=== PATIENT | female | born 1955 | race African-American/Black ===

== ENCOUNTER 2016-12-16 17:32 | Emergency (ER) | payer OTHER ==
[~2016-12-16] VITALS: Ht 160 cm; Wt 130.0 kg
[~2016-12-16 17:32] MED LIST: AMLO10 PO; CLON.1 PO; CLOP75 PO; ECOT81TA2 PO; LISI20 PO; METO50TA PO; OXYC1SOL5 PO; PRAV40 PO
[2016-12-16 17:35] VITALS: BP 210/118; PULSE 92; RESP 17; TEMP 97.8; O2SAT 98
[2016-12-16 17:44] VITALS: BP 176/112; PULSE 89
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
[2016-12-16] MEDS ORDERED: cloNIDine HCL 0.2 MG TAB PO ONE (19:15)
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
[2016-12-16] MEDS ORDERED: CYCL1TAB29 PO (19:41)
[2016-12-16] MEDS ORDERED: DICL50TA3 PO (19:41)
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
[2017-01-13] MEDS ORDERED: AMLO10TA2 PO ×2 (14:48→15:10)
[2017-01-13] MEDS ORDERED: ASPI81TA81 PO ×2 (14:48→15:10)
[2017-01-13] MEDS ORDERED: CLOP75TA PO ×2 (14:48→15:10)
[2017-01-13] MEDS ORDERED: LISI-515 PO ×2 (14:48→15:10)
[2017-01-13] MEDS ORDERED: METO50TA PO ×2 (14:48→15:10)
[2017-01-13] MEDS ORDERED: PRAV40TA2 PO ×2 (14:48→15:10)
[2017-01-13] MEDS ORDERED: CLON0.1T PO ×2 (14:48→15:10)
[2017-01-13] MEDS ORDERED: CLON.1 PO (15:17)
[2017-01-13] MEDS ORDERED: METH125I2 IM (15:19)
[2017-02-16] MEDS ORDERED: METO50TA PO (11:22)
[2017-03-22] MEDS ORDERED: TRAZ50TA12 PO (14:47)
[2017-03-22] MEDS ORDERED: ESCI10TA PO (14:47)
[2017-03-22] MEDS ORDERED: METF500T PO (15:08)
[2017-03-22] MEDS ORDERED: CLON0.1T PO (15:08)
== END 2016-12-16 19:55 | disposition home or self-care (01) ==
LOC: NEPB 17:32
DX: S16.1XXA Strain of muscle, fascia and tendon at neck level, initial encounter (principal); I10 Essential (primary) hypertension; V43.62XA Car passenger injured in collision with other type car in traffic accident, initial encounter; Y92.410 Unspecified street and highway as the place of occurrence of the external cause; Z86.73 Personal history of transient ischemic attack (TIA), and cerebral infarction without residual deficits
CPT/HCPCS: 72125; 99284; L0150

== ENCOUNTER → 2017-01-14 | Outpatient (CLI) | payer OTHER ==
[~2017-01-14] MED LIST changes: +AMLO10TA2 PO; +ASPI81TA81 PO; +CLON0.1T PO; +CLOP75TA PO; +CYCL1TAB29 PO; +DICL50TA3 PO; +ESCI10TA PO; +LISI-515 PO; +METF500T PO; +MIRA33504 PO; +PRAV40TA2 PO; +PROT40TA PO; +TRAZ50TA12 PO
[2017-01-14 09:50] LABS: AUTOMATED NEUTROPHIL # 9.5 TH/MM3 (1.8-7.7); BASOPHIL # 0.1 TH/MM3 (0-0.2); BASOPHIL % 0.5 % (0.0-2.0); HEMATOCRIT 42.4 % (35.0-46.0); HEMO FLAGS DIFF FINAL; LYMPH % 16.1 % (9.0-44.0); LYMPHOCYTE # 1.9 TH/MM3 (1.0-4.8); MEAN CELL VOLUME 90.3 FL (80.0-100.0); MEAN CORPUSCULAR HEMOGLOBIN 30.6 PG (27.0-34.0); MEAN CORPUSCULAR HGB CONC 33.9 % (32.0-36.0); MONO % 2.8 % (0.0-8.0); NEUT % 80.6 % (16.0-70.0); PLATELET COUNT 229 TH/MM3 (150-450); RED BLOOD COUNT 4.69 MIL/MM3 (4.00-5.30); RED CELL DISTRIBUTION WIDTH 14.5 % (11.6-17.2); WHITE BLOOD COUNT 11.8 TH/MM3 (4.0-11.0)
[2017-01-14 10:28] LABS: ALKALINE PHOSPHATASE 94 U/L (45-117); ALT (GPT) 16 U/L (10-53); ANION GAP 8 MEQ/L (5-15); AST (GOT) 11 U/L (15-37); BICARBONATE 25.2 MEQ/L (21.0-32.0); BLOOD UREA NITROGEN 11 MG/DL (7-18); CHLORIDE 105 MEQ/L (98-107); GLOMERULAR FILTRATION RATE 72 ML/MIN (>89); GLUCOSE,FASTING 153 MG/DL (74-99); HDL CHOLESTEROL 43.9 MG/DL (40.0-60.0); LDL CHOLESTEROL 161 MG/DL (0-99); SODIUM (NA) 138 MEQ/L (136-145); TOTAL BILIRUBIN ADULT 0.5 MG/DL (0.2-1.0)
== END ==
LOC: CLAB 09:33
PROVIDERS: ATTEND Family Medicine
DX: F41.9 Anxiety disorder, unspecified (principal); I10 Essential (primary) hypertension; R73.02 Impaired glucose tolerance (oral); M19.90 Unspecified osteoarthritis, unspecified site; Z87.891 Personal history of nicotine dependence
CPT/HCPCS: 36415; 80053; 80061; 84443; 85025

== ENCOUNTER → 2017-02-16 | Outpatient (CLI) | payer OTHER ==
[~2017-02-16] MED LIST changes: -AMLO10 PO; -CLON.1 PO; -CLOP75 PO; -ECOT81TA2 PO; -LISI20 PO; -OXYC1SOL5 PO; -PRAV40 PO
[2017-02-16 16:01] LABS: HEMOGLOBIN A1a 1.2 %; HEMOGLOBIN A1b 1.8 %; HEMOGLOBIN Ao 83.8 %; HEMOGLOBIN LA1C 2.1 %; HEMOGLOBIN P3 3.7 %
== END ==
LOC: CLAB 10:58
PROVIDERS: ATTEND Family Medicine
DX: R73.01 Impaired fasting glucose (principal)
CPT/HCPCS: 36415; 83036

== ENCOUNTER → 2017-02-23 | Outpatient (CLI) | payer OTHER ==
--- NOTE | 2017-02-24 17:28 | EKG ---
Date Performed: 02/23/2017 Time Performed: 14:15:50 PTAGE: 61 years EKG: Sinus rhythm NONSPECIFIC T-WAVE ABNORMALITY BORDERLINE ECG Compared to PREVIOUS TRACING of 03/02/2015, inferior T-wave changes are new. PREVIOUS TRACIN03/02 08.46 DOCTOR: Tio Keller Interpretating Date/Time 02/24/2017 17:26:45
== END ==
LOC: HCAV 14:04
PROVIDERS: ATTEND Family Medicine
DX: R00.2 Palpitations (principal)
CPT/HCPCS: 93005

== ENCOUNTER 2017-03-11 18:24 | Observation (INO) | payer OTHER ==
[~2017-03-11] VITALS: Ht 160 cm; Wt 92.0 kg
[2017-03-11] VITALS (7 sets, daily range): BP systolic 96–138; BP diastolic 58–101; PULSE 56–71; RESP 16–33; TEMP 98.3–98.9; O2SAT 97–100
[~2017-03-11 18:24] MED LIST changes: -ESCI10TA PO; -METF500T PO; -MIRA33504 PO; -PROT40TA PO; -TRAZ50TA12 PO
[2017-03-11] MEDS ORDERED: SODIUM CHLOR 0.9% 1000 ML INJ 1,000 ML IV SCH (19:23)
[2017-03-11] MEDS ORDERED: LIDOCAINE VISCOUS 2% SOLN 15 ML UDC PO ONE (19:30)
[2017-03-11] MEDS ORDERED: ASPIRIN 81 MG CHEW TAB PO ONE (19:30)
[2017-03-11] MEDS ORDERED: MORPHINE SULFATE 8 MG/ML INJ IV PUSH ONE (19:30)
[2017-03-11] MEDS ORDERED: SODIUM CHLORIDE 0.9% FLUSH 10 ML FLUSH IV FLUSH PRN (19:30)
[2017-03-11] MEDS ORDERED: ONDANSETRON HCL 4 MG/2 ML VIAL IVP ONE (19:30)
[2017-03-11] MEDS ORDERED: ALUMINUM/MAGNESIUM/SIMETH 30 ML CUP PO ONE (19:30)
[2017-03-11] MEDS: NITROGLYCERIN 0.4 MG SL 25 TABS/BTL SL SCH ×3 (19:40→20:12)
[2017-03-11 19:49] LABS: BASOPHIL % 0.2 % (0.0-2.0); EOSINOPHIL # 0.2 TH/MM3 (0-0.4); EOSINOPHIL % 1.8 % (0.0-4.0); HEMATOCRIT 41.4 % (35.0-46.0); HEMO FLAGS DIFF FINAL; LYMPH % 55.9 % (9.0-44.0); MEAN CELL VOLUME 91.7 FL (80.0-100.0); MEAN CORPUSCULAR HEMOGLOBIN 29.3 PG (27.0-34.0); MEAN CORPUSCULAR HGB CONC 31.9 % (32.0-36.0); MONO % 8.5 % (0.0-8.0); NEUT % 33.6 % (16.0-70.0); PLATELET COUNT 209 TH/MM3 (150-450); RED BLOOD COUNT 4.51 MIL/MM3 (4.00-5.30); RED CELL DISTRIBUTION WIDTH 14.5 % (11.6-17.2); WHITE BLOOD COUNT 8.9 TH/MM3 (4.0-11.0)
[2017-03-11 20:10] LABS: APTT (PATIENT) 29.4 SEC (24.3-30.1); PROTHROMBIN TIME - PATIENT 11.3 SEC (9.8-11.6)
--- NOTE | 2017-03-11 20:20 | PD ---
HPI Chief Complaint: Chest Pain Time Seen by Provider: 19:12 Travel History International Travel<30 days: No Contact w/Intl Traveler<30days: No Traveled to known affect area: No History of Present Illness HPI 61-year-old female describes with a left lower chest/upper abdomen pressure like sensation for about one hour or so. It started while she was cooking. She states it's 9/10. There is no radiation of pain. For the past 2 days she' s felt very weak however chest pain started tonight. She denies shortness of breath. No fever or cough reported. Evidently she has a history of coronary artery disease and underwent catheterization however her coronary arteries were too narrow for stenting and she is on aspirin and another blood thinner however she cannot recall name of it. When the patient sat upright to undergo evaluation of the lungs she had marked pain in the left upper abdomen forcing her to sit back down immediately. She notes that she has chronic constipation and typically has to use laxatives to go to the bathroom. She does report normal flatus. She's had no vomiting. PFSH Past Medical History Arthritis: No Blood Disorders: No Anxiety: Yes Cancer: No Cardiovascular Problems: Yes High Cholesterol: Yes Chest Pain: Yes Congestive Heart Failure: No Cerebrovascular Accident: Yes (TIA) Diminished Hearing: No Endocrine: No GERD: Yes Genitourinary: No Hypertension: Yes Immune Disorder: No Musculoskeletal: No Neurologic: No Psychiatric: No Reproductive: No Respiratory: No Migraines: No Myocardial Infarction: Yes Seizures: No Sleep Apnea: No ?: Not Menopausal: Yes Past Surgical History Abdominal Surgery: No Cardiac Surgery: Yes (CEA R) Ear Surgery: No Endocrine Surgery: No Eye Surgery: No Genitourinary Surgery: No Gynecologic Surgery: No Hysterectomy: Yes Oral Surgery: No Thoracic Surgery: No Other Surgery: No (LASER TO GROIN) Social History Alcohol Use: No Tobacco Use: No Substance Use: No Allergies-Medications (Allergen,Severity, Reaction): Coded Allergies: No Known Allergies (Verified , 02/14/17) Reported Meds & Prescriptions Reported Meds & Active Scripts Active Metoprolol Tartrate 50 Mg Tab 50 Mg PO BID Amlodipine (Amlodipine Besylate) 10 Mg Tab 10 Mg PO DAILY Aspir-81 (Aspirin) 81 Mg Tabdr 81 Mg PO DAILY Clonidine (Clonidine HCl) 0.1 Mg Tab 0.1 Mg PO BID Clopidogrel (Clopidogrel Bisulfate) 75 Mg Tab 75 Mg PO DAILY Lisinopril 20 Mg Tab 20 Mg PO BID Pravastatin 40 Mg Tab 80 Mg PO HS Review of Systems Except as stated in HPI: all other systems reviewed are Neg Physical Exam Narrative GENERAL: 61-year-old female pleasant well-nourished well-developed SKIN: Warm and dry. HEAD: Atraumatic. Normocephalic. EYES: Pupils equal and round. No scleral icterus. No injection or drainage. ENT: No nasal bleeding or discharge. Mucous membranes pink and moist. NECK: Trachea midline. No JVD. CARDIOVASCULAR: Regular rate and rhythm. RESPIRATORY: No accessory muscle use. Clear to auscultation. Breath sounds equal bilaterally. GASTROINTESTINAL: abdomen is soft but tender in the epigastrium and left upper quadrant. MUSCULOSKELETAL: Extremities without clubbing, cyanosis, or edema. No obvious deformities. NEUROLOGICAL: Awake and alert. No obvious cranial nerve deficits. Motor grossly within normal limits. Five out of 5 muscle strength in the arms and legs. Normal speech. PSYCHIATRIC: Appropriate mood and affect; insight and judgment normal. Data Data Last Documented VS Vital Signs Date Time Temp Pulse Resp B/P Pulse Ox O2 Delivery O2 Flow Rate FiO2 03/11/17 20:37 71 16 138/78 98 03/11/17 19:00 Nasal Cannula 2 03/11/17 18:36 98.3 Vital signs reviewed Orders Electrocardiogram (03/11/17 ) Complete Blood Count With Diff (03/11/17 19:23) Comprehensive Metabolic Panel (03/11/17 19:23) Lipase (03/11/17 19:23) Prothrombin Time / Inr (Pt) (03/11/17 19:23) Act Partial Throm Time (Ptt) (03/11/17 19:23) Urinalysis - C+S If Indicated (03/11/17 19:23) Ct Abd/Pel W Iv Contrast(Rout) (03/11/17 19:23) Iv Access Insert/Monitor (03/11/17 19:23) Ecg Monitoring (03/11/17 19:23) Oximetry (03/11/17 19:23) Ondansetron Inj (Zofran Inj) (03/11/17 19:30) Sodium Chlor 0.9% 1000 Ml Inj (Ns 1000 M (03/11/17 19:23) Sodium Chloride 0.9% Flush (Ns Flush) (03/11/17 19:30) Morphine Inj (Morphine Inj) (03/11/17 19:30) Al-Mag Hy-Si 40-40-4 Mg/Ml Liq (Mag-Al P (03/11/17 19:30) Lidocaine 2% Viscous (Xylocaine 2% Visco (03/11/17 19:30) Ckmb (Isoenzyme) Profile (03/11/17 19:23) Troponin I (03/11/17 19:23) Aspirin Chew (Aspirin Chew) (03/11/17 19:30) Nitroglycerin Sl (Nitrostat Sl) (03/11/17 19:30) Oral Contrast - Adult (03/11/17 19:43) Chest, Single Ap (03/11/17 ) Diatrizoate Liq ( Gastroview Liq) (03/11/17 21:09) Iohexol 350 Inj (Omnipaque 350 Inj) (03/11/17 22:50) Urine Culture (03/11/17 22:50) Admit Order (Ed Use Only) (03/11/17 23:16) Labs Laboratory Tests Test 03/11/17 03/11/17 19:25 22:50 White Blood Count 8.9 TH/MM3 Red Blood Count 4.51 MIL/MM3 Hemoglobin 13.2 GM/DL Hematocrit 41.4 % Mean Corpuscular Volume 91.7 FL Mean Corpuscular Hemoglobin 29.3 PG Mean Corpuscular Hemoglobin 31.9 % Concent Red Cell Distribution Width 14.5 % Platelet Count 209 TH/MM3 Mean Platelet Volume 10.0 FL Neutrophils (%) (Auto) 33.6 % Lymphocytes (%) (Auto) 55.9 % Monocytes (%) (Auto) 8.5 % Eosinophils (%) (Auto) 1.8 % Basophils (%) (Auto) 0.2 % Neutrophils # (Auto) 3.0 TH/MM3 Lymphocytes # (Auto) 5.0 TH/MM3 Monocytes # (Auto) 0.8 TH/MM3 Eosinophils # (Auto) 0.2 TH/MM3 Basophils # (Auto) 0.0 TH/MM3 CBC Comment DIFF FINAL Differential Comment Prothrombin Time 11.3 SEC Prothromb Time International 1.0 RATIO Ratio Activated Partial 29.4 SEC Thromboplast Time Sodium Level 138 MEQ/L Potassium Level 4.8 MEQ/L Chloride Level 100 MEQ/L Carbon Dioxide Level 30.6 MEQ/L Anion Gap 7 MEQ/L Blood Urea Nitrogen 13 MG/DL Creatinine 0.91 MG/DL Estimat Glomerular Filtration 77 ML/MIN Rate Random Glucose 84 MG/DL Calcium Level 9.2 MG/DL Total Bilirubin 0.5 MG/DL Aspartate Amino Transf 15 U/L (AST/SGOT) Alanine Aminotransferase 14 U/L (ALT/SGPT) Alkaline Phosphatase 94 U/L Total Creatine Kinase 88 U/L Troponin I LESS THAN 0.02 NG/ML Total Protein 8.1 GM/DL Albumin 3.3 GM/DL Lipase 101 U/L Urine Color YELLOW Urine Turbidity HAZY Urine pH 6.0 Urine Specific [place] 1.011 Urine Protein NEG mg/dL Urine Glucose (UA) NEG mg/dL Urine Ketones NEG mg/dL Urine Occult Blood NEG Urine Nitrite NEG Urine Bilirubin NEG Urine Urobilinogen LESS THAN 2.0 MG/DL Urine Leukocyte Esterase SMALL Urine RBC 1 /hpf Urine WBC 4 /hpf Urine Squamous Epithelial 3 /hpf Cells Urine Bacteria MOD /hpf Urine Mucus FEW /lpf Microscopic Urinalysis Comment CULTURE INDICATED MDM Medical Decision Making Medical Screen Exam Complete: Yes Emergency Medical Condition: Yes Medical Record Reviewed: Yes Differential Diagnosis NSTEMI, unstable angina, coronary vasospasm, PE, PTX, aortic dissection, pericarditis, myocarditis, endocarditis, PNA, esophageal disease, aneurysm, musculoskeletal etiologies, anxiety, cocaine/sympathomimetic abuse Narrative Course EKG reveals a sinus rhythm with a rate of 54 normal axis and intervals, TWI in III and flattening in aVF CBC & BMP Diagram 03/11/17 19:25 Tn < 0.02 LFts normal Lipase normal UA: unlikely a UTI Last 24 hours Impressions Abdomen/Pelvis CT 03/11/17 1923 Signed Impressions: Service Date/Time: Saturday, March 11, 2017 22:46 - CONCLUSION: 1. No acute findings in abdomen and pelvic CT. Mild fatty liver. Mild constipation. Dewey Miranda MD Chest X-Ray 03/11/17 0000 Signed Impressions: Service Date/Time: Saturday, March 11, 2017 20:49 - CONCLUSION: No evidence of acute cardiopulmonary disease. Mild, chronic compensated cardiomegaly. Matt Maloney MD Pt's pain could be coronary in nature. She has a hx of CAD per prior cath records. Constipation is a concern as well. SENIOR RD ENGINEER protocol considered next most reasonable step for patient. Diagnosis Primary Impression: Chest pain Qualified Code: R07.9 - Chest pain, unspecified type Additional Impression: Constipation Qualified Code: K59.00 - Constipation, unspecified constipation type Admitting Information Admitting Physician Requests: Observation Jamie Arauz MD March 11, 2017 20:20
[2017-03-11 20:22] LABS: ANION GAP 7 MEQ/L (5-15); AST (GOT) 15 U/L (15-37); BICARBONATE 30.6 MEQ/L (21.0-32.0); BLOOD UREA NITROGEN 13 MG/DL (7-18); CHLORIDE 100 MEQ/L (98-107); GLOMERULAR FILTRATION RATE 77 ML/MIN (>89); POTASSIUM 4.8 MEQ/L (3.5-5.1); SODIUM (NA) 138 MEQ/L (136-145)
[2017-03-11 20:49] LABS: ALKALINE PHOSPHATASE 94 U/L (45-117); ALT (GPT) 14 U/L (10-53); TOTAL BILIRUBIN ADULT 0.5 MG/DL (0.2-1.0)
[2017-03-11] MEDS ORDERED: DIATRIZOATE MEGLUM/DIATRIZOATE SOD 9 ML CUP ONE (21:09)
[2017-03-11 21:16] LABS: CREATINE KINASE 88 U/L (26-192)
--- NOTE | 2017-03-11 21:23 | RADRPT ---
EXAM DATE/TIME: 03/11/2017 20:49 [facility] COMPARISON: Report only CHEST SINGLE AP, January 26, 2011, 15:44. INDICATIONS : Chest pressure for 4 hours MEDICAL HISTORY : None. SURGICAL HISTORY : None. ENCOUNTER: Initial ACUITY: 1 day PAIN SCORE: 0/10 LOCATION: Bilateral chest FINDINGS: No infiltrate, effusion or pneumothorax. Mild cardiomegaly present and was reported previously. CONCLUSION: No evidence of acute cardiopulmonary disease. Mild, chronic compensated cardiomegaly. Matt Maloney MD on March 11, 2017 at 21:21 Board Certified Radiologist. This report was verified electronically.
[2017-03-11] MEDS ORDERED: IOHEXOL 350 MG/ML 10 ML VIAL (for RAD DIAG) IV ONE (22:50)
--- NOTE | 2017-03-11 23:09 | RADRPT ---
EXAM DATE/TIME: 03/11/2017 22:46 [facility] COMPARISON: No previous studies available for comparison. INDICATIONS : Abdominal pain. IV CONTRAST: 100 cc Omnipaque 350 (iohexol) IV ORAL CONTRAST: Prescribed oral contrast ingested. RADIATION DOSE: 11.49 CTDIvol (mGy) MEDICAL HISTORY : Hypertension. Cardiovascular disease SURGICAL HISTORY : Hysterectomy. Endarterectomy ENCOUNTER: Initial ACUITY: 1 day PAIN SCALE: 6/10 LOCATION: abdomen TECHNIQUE: Volumetric scanning of the abdomen and pelvis was performed. Using automated exposure control and ad justment of the mA and/or kV according to patient size, radiation dose was kept as low as reasonably achievable to obtain optimal diagnostic quality images. FINDINGS: Lung bases clear except minimal linear scarring or atelectasis. There is mild fatty liver. Spleen, ad renals, kidneys and pancreas unremarkable. No calcified gallstones. There is no free fluid or free air. No bowel obstruction. Mild constipation. Moderate degenerative ch anges seen spine. CONCLUSION: 1. No acute findings in abdomen and pelvic CT. Mild fatty liver. Mild constipation. Dewey Miranda MD on March 11, 2017 at 23:01 Board Certified Radiologist. This report was verified electronically.
[2017-03-11 23:11] LABS: BACTERIA, URINE MOD /hpf; BLOOD, URINE NEG (NEG); COMMENT (UR) CULTURE INDICATED; CULTURE IF INDICATED CULTURE INDICATED; GLUCOSE,URINE NEG (NEG); KETONE, URINE NEG (NEG); MUCUS URINE FEW /lpf (OCC); NITRITE,URINE NEG (NEG); SQUAMOUS EPITHELIAL CELL URINE 3 /hpf (0-5); URINE COLOR YELLOW (YELLW/STRAW)
[2017-03-12] MEDS ORDERED: ALPRAZolam 0.25 MG TAB PO PRN (00:30)
[2017-03-12] MEDS ORDERED: ACETAMINOPHEN/HYDROcodone 325 MG/7.5 MG TAB PO PRN (00:30)
[2017-03-12] MEDS ORDERED: NITROGLYCERIN 0.4 MG SL 25 TABS/BTL SL PRN (00:30)
[2017-03-12] MEDS ORDERED: MORPHINE SULFATE 4 MG/ML INJ IV PRN (00:30)
[2017-03-12] MEDS ORDERED: ONDANSETRON HCL 4 MG/2 ML VIAL IV PRN (00:30)
[2017-03-12] MEDS ORDERED: TEMAZEPAM 15 MG CAP PO PRN (00:30)
[2017-03-12 01:17] VITALS: O2SAT 100
[2017-03-12 01:59] LABS: CREATINE KINASE 149 U/L (26-192)
[2017-03-12 02:00] VITALS: PULSE 50
[2017-03-12 02:12] LABS: CKMB 0.9 NG/ML (0.5-3.6)
[2017-03-12 03:25] VITALS: RESP 21
[2017-03-12 05:28] VITALS: PULSE 53
[2017-03-12] MEDS: NITROGLYCERIN 2% OINT 1 GM PACKET TOP SCH ×2 (06:00→12:00)
[2017-03-12 08:15] LABS: CREATINE KINASE 66 U/L (26-192)
--- NOTE | 2017-03-12 08:36 | HHI.HP ---
HPI Primary Care Physician Lynne Grace MD Chief Complaint Chest pain History of Present Illness 61-year-old female with known coronary artery disease, hypertension, hyperlipidemia presents to the emergency room for further evaluation of chest and abdominal pressure. Onset yesterday 4:30 p.m. while cooking. Location epigastric, upper abdominal, and left anterior chest. Characterized as severe, heavy pressure stating "I felt my stomach would burst." No associated symptoms. No known precipitating factors. Relieving factors morphine and nitroglycerin provided in the ER, subsided within 5 minutes however quickly returned endorses constant waxing and waning abdominal and chest discomfort. Pain has never gone completely away. Never had pain such as this in the past. No particular movement, position may pain better or worse. Deep breathing did not make pain worse. Endorses chronic constipation use of Epson salts laxatives at least twice weekly. She cannot remember last bowel movement date, states "it's been a while." Review of Systems General: Endorses fatigue over the last few months, PCP recently completed blood work and she has an appointment next week to review results. No weakness , fever, chills, recent travel, recent illness, or change in appetite HEENT: No MORALES, no nasal congestion or drainage, no dysphasia. No acute vision changes, reports occasionally seen "black, floating dots. CV: As stated above. History of coronary artery disease, no known myocardial infarctions or coronary interventions. Occasional fluttering of chest with no known precipitating factors. No dizziness. RESP: No SOB, cough, wheeze, upper respiratory infection, or asthma. Quit smoking 2014. GI: As stated above. History of chronic constipation, use of laxatives twice weekly. Last bowel movement unknown. No nausea, vomiting, diarrhea, distention , melena, or blood in the stool. No change in appetite. Endorses weight gain which she contributes to her eating habits. : No dysuria, urgency, frequency, or hematuria EXT: Bilateral dependent lower leg edema relieved with elevation of legs. Complains of chronic bilateral feet pain described as "my feet are on fire." MS: No discomfort or change in ROM, no residual deficits from stroke in 2015. Ambulates without cane or walker. NEURO: No change in memory, dizziness, difficulty with balance, LOC, motor/ sensory deficits PSYCH: Endorses anxiety, states her PCP is assisting her to be evaluated at [facility]. No depression, situational stress, or suicidal ideation. SKIN: No rashes, no concerning lesions Past Family Social History Allergies: Coded Allergies: No Known Allergies (Verified , 02/14/17) Past Medical History Coronary artery disease, hypertension, CVA, TIA, anxiety, hyperlipidemia, carotid arterial stenosis Past Surgical History Right CEA Reported Medications Active Metoprolol Tartrate 50 Mg Tab 50 Mg PO BID Amlodipine (Amlodipine Besylate) 10 Mg Tab 10 Mg PO DAILY Aspir-81 (Aspirin) 81 Mg Tabdr 81 Mg PO DAILY Clonidine (Clonidine HCl) 0.1 Mg Tab 0.1 Mg PO BID Clopidogrel (Clopidogrel Bisulfate) 75 Mg Tab 75 Mg PO DAILY Lisinopril 20 Mg Tab 20 Mg PO BID Pravastatin 40 Mg Tab 80 Mg PO HS Active Ordered Medications Current Medications Medications (Trade) Dose Ordered Sig/Sergio Route Start Time Stop Time Status Last Admin ([place] 7.5-325 Mg) 1 tab Q4H PRN PO 03/12/17 00:30 (Morphine Inj) 2 mg Q4H PRN IV 03/12/17 00:30 03/12/17 03:20 (Zofran Inj) 4 mg Q6H PRN IV 03/12/17 00:30 (Nitroglycerin 2% Oint) 1 inch Q6HR TOP 03/12/17 06:00 (Nitrostat Sl) 0.4 mg Q5M PRN SL 03/12/17 00:30 (Aspirin) 325 mg DAILY PO 03/12/17 09:00 (Restoril) 15 mg HS PRN PO 03/12/17 00:30 (Xanax) 0.25 mg Q8H PRN PO 03/12/17 00:30 Family History Noncontributory for early onset cardiovascular disease. Social History Known hypertension and hyperlipidemia. Has been told she has a "borderline diabetic." [employer] records indicate lab work completed 02/17/17 a hemoglobin A1c of 6.9%. Quit smoking and alcohol use on December 22, 2014. Prior to quitting smoking she smoked 1 pack daily since her early teens. Denies any illegal drug use. Endorses is sedentary lifestyle due to chronic right knee pain and bilateral feet pain. , currently unemployed. Past cardiac testing 03/04/15 Imani scanfixed defect involving inferior and lateral wall suggesting infarcts and RCA and left circumflex distribution, global hypokinesis, ejection fraction 30%, with no reversible defects 02/17/08 left heart catheterization(Performed by Dr. Mcqueen) Conclusion 1. Left main has 2030% ostial lesion. 2. LAD has 20-30% disease in the proximal portion. The rest of the left anterior descending artery has mild diffuse 1020 % stenosis. 3. The circumflex artery gives rise to 2 marginals. At the bifurcation of the second marginal, there is 70% stenosis. Distal to that, the circumflex appears to be 2 mm size vessel. 4. RCA is a dominant vessel with diffusely disease of multiple areas of 5060% blockages. The PDA and PLR have mild diffuse disease. 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 Physical Exam Vital Signs Vital Signs Date Time Temp Pulse Resp B/P Pulse Ox O2 Delivery O2 Flow Rate FiO2 03/12/17 05:28 53 03/12/17 03:25 21 03/12/17 02:00 50 03/12/17 01:17 100 Nasal Cannula 2.00 03/11/17 20:37 71 16 138/78 98 03/11/17 20:20 60 16 96/58 97 03/11/17 20:05 58 18 106/81 97 03/11/17 19:55 60 18 124/81 97 03/11/17 19:00 60 18 98 Nasal Cannula 2 03/11/17 18:36 98.3 56 20 132/101 98 03/11/17 18:26 98.9 60 33 137/82 100 Physical Exam GENERAL: Alert WN, WD, NAD, obese, pleasant, female HEAD: NC, AT EYES: Sclera clear, conjunctiva without injection, pupils equal and round ENT: Mucous membranes pink and moist NECK: Supple, no masses, trachea midline CV: RRR, without murmur, rub, gallop, no JVD, S1-S2 no S3-S4. No carotid or femoral bruits. RESP: Clear lungs throughout bilateral, no crackles, wheeze, rhonchi, symmetrical chest rise, nonlabored, able to speak in full sentences ABD: Soft, ND, no masses, positive bowel tones, negative Bowen's sign, generalized tenderness in epigastrium, left upper quadrat with palpation. BACK: No CVAT, no scoliosis EXT: Pulses +24, +1 dependent ankle edema MS: Anterior chest tender on palpation. Normal tone 4 extremities, no obvious deformities, full range of motion NEURO: CN II through CN XII grossly intact, motor strength 5/5, gait WNL PSYCH: A+O 3, pleasant affect, appropriate speech, appropriate mood and affect , insight and judgment SKIN: Normal turgor, normal texture, no lesions, no rashes, brisk cap refill, even hair distribution Laboratory Laboratory Tests Test 03/11/17 03/11/17 03/12/17 03/12/17 19:25 22:50 01:00 07:40 White Blood Count 8.9 Red Blood Count 4.51 Hemoglobin 13.2 Hematocrit 41.4 Mean Corpuscular Volume 91.7 Mean Corpuscular Hemoglobin 29.3 Mean Corpuscular Hemoglobin 31.9 Concent Red Cell Distribution Width 14.5 Platelet Count 209 Mean Platelet Volume 10.0 Neutrophils (%) (Auto) 33.6 Lymphocytes (%) (Auto) 55.9 Monocytes (%) (Auto) 8.5 Eosinophils (%) (Auto) 1.8 Basophils (%) (Auto) 0.2 Neutrophils # (Auto) 3.0 Lymphocytes # (Auto) 5.0 Monocytes # (Auto) 0.8 Eosinophils # (Auto) 0.2 Basophils # (Auto) 0.0 CBC Comment DIFF FINAL Differential Comment Prothrombin Time 11.3 Prothromb Time International 1.0 Ratio Activated Partial 29.4 Thromboplast Time Sodium Level 138 Potassium Level 4.8 Chloride Level 100 Carbon Dioxide Level 30.6 Anion Gap 7 Blood Urea Nitrogen 13 Creatinine 0.91 Estimat Glomerular Filtration 77 Rate Random Glucose 84 Calcium Level 9.2 Total Bilirubin 0.5 Aspartate Amino Transf 15 (AST/SGOT) Alanine Aminotransferase 14 (ALT/SGPT) Alkaline Phosphatase 94 Total Creatine Kinase 88 149 66 Troponin I LESS THAN 0.02 LESS THAN 0.02 LESS THAN 0.02 Total Protein 8.1 Albumin 3.3 Lipase 101 Urine Color YELLOW Urine Turbidity HAZY Urine pH 6.0 Urine Specific Craig 1.011 Urine Protein NEG Urine Glucose (UA) NEG Urine Ketones NEG Urine Occult Blood NEG Urine Nitrite NEG Urine Bilirubin NEG Urine Urobilinogen LESS THAN 2.0 Urine Leukocyte Esterase SMALL Urine RBC 1 Urine WBC 4 Urine Squamous Epithelial 3 Cells Urine Bacteria MOD Urine Mucus FEW Microscopic Urinalysis Comment CULTURE INDICATED Creatine Kinase MB 0.9 Date/Time Procedure Status Source Growth 03/11/17 22:50 Urine Culture Received Urine Clean Catch Pending Result Diagram: 03/11/17192403/11/171924 Imaging Last Impressions Abdomen/Pelvis CT 03/11/171922 Signed Impressions: Service Date/Time: Saturday, March 11, 2017 22:46 - CONCLUSION: 1. No acute findings in abdomen and pelvic CT. Mild fatty liver. Mild constipation. Dewey Miranda MD Chest X-Ray 03/11/17 0000 Signed Impressions: Service Date/Time: Saturday, March 11, 2017 20:49 - CONCLUSION: No evidence of acute cardiopulmonary disease. Mild, chronic compensated cardiomegaly. Matt Maloney MD Course EKGs 3 EKGs- normal sinus rhythm, nonspecific T-wave abnormality Assessment and Plan Assessment and Plan #1 Chest painadmitted to chest pain center. Ruled out with 3 sets of cardiac enzymes, EKGs, and monitored overnight. Will be seen and evaluated by Dr. Aly Jarquin. Discussed in length with patient next step would be to complete a chemical stress test due to multiple risk factors and no recent cardiac testing, although chest discomfort atypical. Patient is agreeable to plan of care. #2 Hypertensioncontinue lisinopril and amlodipine, encouraged a low sodium diet , keeping follow-up appointments with PCP, and medication compliance. Discussed in length importance of tight blood pressure control and risk of long- standing uncontrolled hypertension. #3 Hyperlipidemiacontinue pravastatin. Discussed in length benefits of statin therapy with known coronary artery disease regardless of cholesterol panel. #4 Coronary artery diseasecontinue metoprolol, Plavix, and aspirin. #5 Diabetesdiscussed in length recent hemoglobin A1c results. Keep follow-up appointment with PCP next week. Encouraged eating a well-balanced meal, avoiding sodas, and to perform purposeful daily activity. Encouraged her to schedule a vision exam. Discussed in length also she may be experiencing peripheral neuropathy regarding her diabetes, 2 keep all follow-up appointments , and the importance of tight blood sugar control. Patient made aware PCP most likely had oral anti-glycemic at next visit. Time for questions and answers provided. #6 Chronic constipationdiet high in fiber, vegetables, fruit, and drinking plenty of water encouraged. Avoid regular laxative use. Daily Colace encouraged. CT results reviewed with patient. Follow up with PCP and notify PCP of any [id number] laxatives and/or stool softener she takes on a regular basis. #7 GERD-Protonix 40 mg daily Sade Doty March 12, 2017 08:36
[2017-03-12] MEDS ORDERED: ACETAMINOPHEN 500 MG CPLT PO PRN (08:45)
[2017-03-12] MEDS ORDERED: ASPIRIN 325 MG TAB PO SCH (09:00)
[2017-03-12] MEDS ORDERED: CLOPIDOGREL 75 MG TAB PO SCH (09:00)
[2017-03-12] MEDS ORDERED: METOPROLOL TARTRATE 50 MG TAB PO SCH (09:00)
[2017-03-12] MEDS ORDERED: SODIUM CHLORIDE 0.9% FLUSH 10 ML FLUSH IV FLUSH SCH (09:00)
[2017-03-12] MEDS ORDERED: LISINOPRIL 20 MG TAB PO SCH (09:00)
[2017-03-12] MEDS ORDERED: POLYETHYLENE GLYCOL 17 GM PKG PO ONE (10:00)
[2017-03-12] MEDS ORDERED: BISACODYL EC 5 MG TABEC PO ONE (10:00)
[2017-03-12 10:42] VITALS: PULSE 55
[2017-03-12] MEDS ORDERED: REGADENOSON INJ 0.4 MG/5 ML SYR ONE (11:20)
--- NOTE | 2017-03-12 12:00 | EKG ---
Date Performed: 03/12/2017 Time Performed: 05:20:26 PTAGE: 61 years EKG: SINUS BRADYCARDIA WITH FIRST DEGREE AV BLOCK NONSPECIFIC T-WAVE ABNORMALITY PROLONGED QT IN TERVAL ABNORMAL ECG PREVIOUS TRACING : 03/12/2017 02.06 Since previous tracing, no significant change noted DOCTOR: Aly Jarquin Interpretating Date/Time 03/12/2017 11:59:04
--- NOTE | 2017-03-12 12:00 | EKG ---
Date Performed: 03/12/2017 Time Performed: 02:06:53 PTAGE: 61 years EKG: SINUS BRADYCARDIA NONSPECIFIC T-WAVE ABNORMALITY BORDERLINE ECG PREVIOUS TRACING : 03/11/2017 18.36 Since previous tracing, no significant change noted DOCTOR: Aly Jarquin Interpretating Date/Time 03/12/2017 11:58:29
--- NOTE | 2017-03-12 12:00 | EKG ---
Date Performed: 03/11/2017 Time Performed: 18:36:28 PTAGE: 61 years EKG: SINUS BRADYCARDIA BORDERLINE ECG INTERPRETATION BASED ON A DEFAULT AGE OF 42 YEARS PREVIOUS TRACING : 02/23/2017 14.15 DOCTOR: Aly Jarquin Interpretating Date/Time 03/12/2017 11:58:39
--- NOTE | 2017-03-12 12:47 | RADRPT ---
EXAM DATE/TIME: 03/12/2017 10:49 [facility] COMPARISON: CT ABDOMEN & PELVIS W CONTRAST, March 11, 2017, 22:46. INDICATIONS : Left sided chest pain. Angina. Coronary artery bypass graft. DOSE: 25.9 mCi Tc99m Myoview at stress. 8.1 mCi Tc99m Myoview at rest. 0.4 mg Lexiscan STRESS SYMPTOMS: None. EJECTION FRACTION: 50% MEDICAL HISTORY : Myocardial infarction. Hypertension. Hypercholesterolemia. SURGICAL HISTORY : Carotid surgery. ENCOUNTER: Initial ACUITY: 1 day PAIN SCALE: 2/10 LOCATION: Left chest TECHNIQUE: The patient underwent pharmacologic stress with infusion of prescribed dose. Continuous ECG tracing was monitored during stress. Gated SPECT imaging was performed after stress and conventional SPECT i maging was performed at rest. The examination was performed on a SPECT/CT scanner, both attenuation and non-corrected datasets were reviewed. FINDINGS: DISTRIBUTION: The maximum perfused segment at stress is in the septal wall. PERFUSION STUDY: The pattern of perfusion at stress is within normal limits. GATED STUDY: There is intact wall motion and thickening without hypokinetic or dyskinetic segments. CONCLUSION: No reversible perfusion defects. No focal wall motion abnormalities. RISK CATEGORY: 1- Low Risk. Nathan Vega MD on March 12, 2017 at 12:44 Board Certified Radiologist. This report was verified electronically.
[2017-03-12] MEDS ORDERED: PROT40TA PO (12:59)
[2017-03-12] MEDS ORDERED: MIRA33504 PO (12:59)
--- NOTE | 2017-03-12 13:00 | HHI.DCPOC ---
Discharge Care Plan Goals to Promote Your Health * To prevent worsening of your condition and complications * To maintain your health at the optimal level Directions to Meet Your Goals Take your medications as prescribed Follow your dietary instruction Follow activity as directed Keep your appointments as scheduled Take your immunizations and boosters as scheduled If your symptoms worsen call your PCP, if no PCP go to Urgent Care Center or Emergency Room Smoking is Dangerous to Your Health. Avoid second hand smoke Call the 24-hour hour crisis hotline for domestic abuse at Sade Doty March 12, 2017 13:00
[2017-03-12 14:10] VITALS: O2SAT 92
[2017-03-12] MEDS ORDERED: PRAVASTATIN SOD 80 MG TAB PO SCH (21:00)
--- NOTE | 2017-03-13 14:40 | TR ---
Date Performed: 03/12/2017 Time Performed: 11:22:31 DOCTOR: Aly Jarquin DRUG LIST: CLINICAL HISTORY: CHE REASON FOR TEST: REASON FOR ENDING: OBSERVATION: CONCLUSION: Lexiscan stress test was performed under standard four minute protocol. Radionuclid e was injected one minute prior to ending the test. No electrocardiographic abormalities were present to suggest ischemia. Nuclear imaging and interpretation are pending. COMMENTS:
--- NOTE | 2017-03-13 14:49 | EKG ---
Date Performed: 03/12/2017 Time Performed: 09:09:22 PTAGE: 61 years EKG: SINUS BRADYCARDIA NONSPECIFIC T-WAVE ABNORMALITY PROLONGED QT INTERVAL ABNORMAL ECG PREVIOUS TRACING : 03/12/2017 05.20 Since previous tracing, no significant change noted DOCTOR: Aly Jarquin Interpretating Date/Time 03/13/2017 14:47:03
[2017-03-22] MEDS ORDERED: TRAZ50TA12 PO (14:47)
[2017-03-22] MEDS ORDERED: ESCI10TA PO (14:47)
[2017-03-22] MEDS ORDERED: METF500T PO (15:08)
[2017-03-22] MEDS ORDERED: CLON0.1T PO (15:08)
== END 2017-03-12 14:24 | disposition home or self-care (01) ==
LOC: NEPE 18:24 → NEDA 23:27 → NEPHCDU 03-12 01:20
PROVIDERS: ADMIT Internal Medicine Interventional Cardiology; ATTEND Internal Medicine Interventional Cardiology
DX: R07.9 Chest pain, unspecified (principal); I25.10 Atherosclerotic heart disease of native coronary artery without angina pectoris; E11.42 Type 2 diabetes mellitus with diabetic polyneuropathy; E78.00 Pure hypercholesterolemia, unspecified; K21.9 Gastro-esophageal reflux disease without esophagitis; I11.9 Hypertensive heart disease without heart failure; R82.99 Other abnormal findings in urine; I25.2 Old myocardial infarction; K59.09 Other constipation; G89.29 Other chronic pain; M25.561 Pain in right knee; E78.5 Hyperlipidemia, unspecified; Z87.891 Personal history of nicotine dependence; Z86.73 Personal history of transient ischemic attack (TIA), and cerebral infarction without residual deficits; Z95.5 Presence of coronary angioplasty implant and graft; Z79.82 Long term (current) use of aspirin
CPT/HCPCS: 71010; 74177; 78452; 80053; 81001; 82550; 82552; 83690; 84484; 85025; 85610; 85730; 87086; 93005; 93017; 96361; 96374; 96375; 99285; A9502; G0378; J2270; J2405; J2785; J7030; Q9963; Q9967

== ENCOUNTER 2017-03-17 14:06 | Emergency (ER) | payer OTHER ==
[~2017-03-17] VITALS: Ht 160 cm; Wt 90.9 kg
[~2017-03-17 14:06] MED LIST changes: -CYCL1TAB29 PO; -DICL50TA3 PO; +MIRA33504 PO; +PROT40TA PO
[2017-03-17 14:10] VITALS: BP 120/81; PULSE 61; RESP 18; TEMP 98.3; O2SAT 97
[2017-03-17] MEDS ORDERED: SODIUM CHLOR 0.9% 1000 ML INJ 1,000 ML IV SCH (14:27)
[2017-03-17] MEDS ORDERED: ALUMINUM/MAGNESIUM/SIMETH 30 ML CUP PO ONE (14:30)
[2017-03-17] MEDS ORDERED: SODIUM CHLORIDE 0.9% FLUSH 10 ML FLUSH IVF PRN (14:30)
[2017-03-17] MEDS ORDERED: LIDOCAINE VISCOUS 2% SOLN 15 ML UDC PO ONE (14:30)
[2017-03-17 14:44] VITALS: O2SAT 98
--- NOTE | 2017-03-17 14:47 | PD ---
HPI Chief Complaint: Chest Pain Time Seen by Provider: 14:30 Travel History International Travel<30 days: No Contact w/Intl Traveler<30days: No Traveled to known affect area: No History of Present Illness HPI 11-year-old female presents for evaluation of left upper quadrant abdominal pain , left lower chest pain. Symptoms started 15 minutes prior to arrival, lasted for about 15 minutes, resolved just prior to my examination. It is an aching pain that is mild, no obvious aggravating or relieving factors. She does note that she drank some soda today, does note that has anything to do with it. Thus patient was actually just seen here for evaluation of similar symptoms on March 11. She had a normal CT abdomen and pelvis. She was admitted to the chest pain center and she had a normal myocardial perfusion scan on March 12. The symptoms are consistent with the previous symptoms that the patient was experiencing according to she notes chronic constipation. Denies diarrhea, fevers, chills, cough or congestion, shortness of breath. No other complaints at this time. PFSH Past Medical History Arthritis: No Blood Disorders: No Anxiety: Yes Cancer: No Cardiovascular Problems: Yes High Cholesterol: Yes Chest Pain: Yes Congestive Heart Failure: No Cerebrovascular Accident: Yes (TIA) Diminished Hearing: No Endocrine: No GERD: Yes Genitourinary: No Hypertension: Yes Immune Disorder: No Musculoskeletal: No Neurologic: No Psychiatric: No Reproductive: No Respiratory: No Migraines: No Myocardial Infarction: Yes Seizures: No Sleep Apnea: No Menopausal: Yes Past Surgical History Abdominal Surgery: No Cardiac Surgery: Yes (CEA R) Ear Surgery: No Endocrine Surgery: No Eye Surgery: No Genitourinary Surgery: No Gynecologic Surgery: No Hysterectomy: Yes Oral Surgery: No Thoracic Surgery: No Other Surgery: No (LASER TO GROIN) Social History Alcohol Use: No Tobacco Use: No Substance Use: No Allergies-Medications (Allergen,Severity, Reaction): Coded Allergies: No Known Allergies (Verified , 03/17/17) Reported Meds & Prescriptions Reported Meds & Active Scripts Active Protonix (Pantoprazole Sodium) 40 Mg Tab 40 Mg PO DAILY Metoprolol Tartrate 50 Mg Tab 50 Mg PO BID Amlodipine (Amlodipine Besylate) 10 Mg Tab 10 Mg PO DAILY Aspir-81 (Aspirin) 81 Mg Tabdr 81 Mg PO DAILY Clonidine (Clonidine HCl) 0.1 Mg Tab 0.1 Mg PO BID Clopidogrel (Clopidogrel Bisulfate) 75 Mg Tab 75 Mg PO DAILY Lisinopril 20 Mg Tab 20 Mg PO BID Pravastatin 40 Mg Tab 80 Mg PO HS Review of Systems Except as stated in HPI: all other systems reviewed are Neg Physical Exam Narrative GENERAL: Well-developed well-nourished female in no acute distress resting comfortably in hospital bed SKIN: Warm and dry. HEAD: Atraumatic. Normocephalic. EYES: Pupils equal and round. No scleral icterus. No injection or drainage. ENT: No nasal bleeding or discharge. Mucous membranes pink and moist. NECK: Trachea midline. No JVD. CARDIOVASCULAR: Regular rate and rhythm. No murmur appreciated. RESPIRATORY: No accessory muscle use. Clear to auscultation. Breath sounds equal bilaterally. GASTROINTESTINAL: Abdomen soft, non-tender, nondistended. Hepatic and splenic margins not palpable. MUSCULOSKELETAL: No obvious deformities. No edema NEUROLOGICAL: Awake and alert. No obvious cranial nerve deficits. Motor grossly within normal limits. Normal speech. PSYCHIATRIC: Appropriate mood and affect; insight and judgment normal. Data Data Last Documented VS Vital Signs Date Time Temp Pulse Resp B/P Pulse Ox O2 Delivery O2 Flow Rate FiO2 03/17/17 14:44 98 Room Air 03/17/17 14:10 98.3 61 18 120/81 Orders Electrocardiogram (03/17/17 14:27) Ckmb (Isoenzyme) Profile (03/17/17 14:27) Complete Blood Count With Diff (03/17/17 14:27) Comprehensive Metabolic Panel (03/17/17 14:27) Magnesium (Mg) (03/17/17 14:27) Prothrombin Time / Inr (Pt) (03/17/17 14:27) Act Partial Throm Time (Ptt) (03/17/17 14:27) Troponin I (03/17/17 14:27) Lipase (03/17/17 14:27) Chest, Single Ap (03/17/17 14:27) Ecg Monitoring (03/17/17 14:27) Bilateral Bp Monitoring (03/17/17 14:27) Iv Access Insert/Monitor (03/17/17 14:27) Oximetry (03/17/17 14:27) Oxygen Administration (03/17/17 14:27) Sodium Chloride 0.9% Flush (Ns Flush) (03/17/17 14:30) Sodium Chlor 0.9% 1000 Ml Inj (Ns 1000 M (03/17/17 14:27) Al-Mag Hy-Si 40-40-4 Mg/Ml Liq (Mag-Al P (03/17/17 14:30) Lidocaine 2% Viscous (Xylocaine 2% Visco (03/17/17 14:30) Dicyclomine Inj (Bentyl Inj) (03/17/17 15:30) Ketorolac Inj (Toradol Inj) (03/17/17 15:30) Labs Laboratory Tests Test 03/17/17 14:38 White Blood Count 8.2 TH/MM3 Red Blood Count 4.36 MIL/MM3 Hemoglobin 13.0 GM/DL Hematocrit 39.6 % Mean Corpuscular Volume 90.8 FL Mean Corpuscular Hemoglobin 29.9 PG Mean Corpuscular Hemoglobin 33.0 % Concent Red Cell Distribution Width 14.3 % Platelet Count 191 TH/MM3 Mean Platelet Volume 10.2 FL Neutrophils (%) (Auto) 43.1 % Lymphocytes (%) (Auto) 44.3 % Monocytes (%) (Auto) 9.8 % Eosinophils (%) (Auto) 2.4 % Basophils (%) (Auto) 0.4 % Neutrophils # (Auto) 3.5 TH/MM3 Lymphocytes # (Auto) 3.6 TH/MM3 Monocytes # (Auto) 0.8 TH/MM3 Eosinophils # (Auto) 0.2 TH/MM3 Basophils # (Auto) 0.0 TH/MM3 CBC Comment DIFF FINAL Differential Comment Prothrombin Time 11.3 SEC Prothromb Time International 1.0 RATIO Ratio Activated Partial 28.2 SEC Thromboplast Time Sodium Level 139 MEQ/L Potassium Level 4.3 MEQ/L Chloride Level 106 MEQ/L Carbon Dioxide Level 29.3 MEQ/L Anion Gap 4 MEQ/L Blood Urea Nitrogen 18 MG/DL Creatinine 0.99 MG/DL Estimat Glomerular Filtration 69 ML/MIN Rate Random Glucose 91 MG/DL Calcium Level 8.7 MG/DL Magnesium Level 2.2 MG/DL Total Bilirubin 0.2 MG/DL Aspartate Amino Transf 13 U/L (AST/SGOT) Alanine Aminotransferase 16 U/L (ALT/SGPT) Alkaline Phosphatase 91 U/L Total Creatine Kinase 72 U/L Troponin I LESS THAN 0.02 NG/ML Total Protein 8.2 GM/DL Albumin 3.5 GM/DL Lipase 151 U/L [facility] Medical Decision Making Medical Screen Exam Complete: Yes Emergency Medical Condition: Yes Medical Record Reviewed: Yes Interpretation(s) EKG sinus bradycardia, essentially unchanged from previous. Chest x-ray no acute abnormalities Differential Diagnosis Peptic ulcer disease, gastritis, costochondritis, acute coronary syndrome, angina, pulmonary embolism, aortic dissection Narrative Course 61-year-old female with a 15 minute episode of left upper quadrant abdominal pain/left lower chest pain which resolved just prior to examination. This patient was just admitted on March 11 for evaluation of similar symptoms. She had a normal CT abdomen and pelvis, negative cardiac enzymes, normal myocardial perfusion scan. The workup was very thorough and her symptoms aren't really consistent with acute coronary syndrome or acute surgical intra-abdominal pathology. Her abdomen is currently soft and nontender. I suspect peptic ulcer disease or gastritis or esophageal etiology for the symptoms. Plan is for basic lab work, EKG, chest x-ray. She will be given a GI cocktail. She does have follow-up with primary care physician Dr. Grace and she can receive an outpatient referral to GI for further evaluation as an outpatient. The patient's laboratory imaging studies have been reviewed and found to be unremarkable. She is stable for discharge, outpatient follow-up as discussed. Procedures EKG Prior to Arrival: Yes Diagnosis Primary Impression: Atypical chest pain Additional Impression: Abdominal pain Qualified Code: R10.12 - Left upper quadrant pain Referrals: Lynne Grace MD Medical Typist Additional Instructions: Follow-up with primary care physician Dr. Grace, follow-up with a change advisor. Continue using medications as prescribed. Avoid over-the- counter Advil/Motrin/ibuprofen/naproxen/Aleve. Return for any emergent medical conditions. Med/Other Pt SpecificInfo: No Change to Meds Disposition: 01 DISCHARGE HOME Condition: Stable Aries Andrade March 17, 2017 14:47
--- NOTE | 2017-03-17 14:55 | RADRPT ---
EXAM DATE/TIME: 03/17/2017 14:32 [facility] COMPARISON: CHEST SINGLE AP, March 11, 2017, 20:49. INDICATIONS : Chest pain MEDICAL HISTORY : Hypertension. Myocardial infarction. Hypercholesterolemia. Angina. SURGICAL HISTORY : Coronary artery bypass graft ENCOUNTER: [facility] ACUITY: 4 - 6 days PAIN SCORE: 10/10 LOCATION: Bilateral chest FINDINGS: A single view of the chest demonstrates the lungs to be symmetrically aerated without evidence of mas s, infiltrate or effusion. The cardiomediastinal contours are unremarkable. Osseous structures are intact. CONCLUSION: No acute disease. Matt Bonner MD on March 17, 2017 at 14:53 Board Certified Radiologist. This report was verified electronically.
[2017-03-17 14:58] LABS: AUTOMATED NEUTROPHIL # 3.5 TH/MM3 (1.8-7.7); BASOPHIL % 0.4 % (0.0-2.0); EOSINOPHIL # 0.2 TH/MM3 (0-0.4); EOSINOPHIL % 2.4 % (0.0-4.0); HEMATOCRIT 39.6 % (35.0-46.0); HEMO FLAGS DIFF FINAL; LYMPH % 44.3 % (9.0-44.0); LYMPHOCYTE # 3.6 TH/MM3 (1.0-4.8); MEAN CELL VOLUME 90.8 FL (80.0-100.0); MEAN CORPUSCULAR HEMOGLOBIN 29.9 PG (27.0-34.0); MONO % 9.8 % (0.0-8.0); NEUT % 43.1 % (16.0-70.0); PLATELET COUNT 191 TH/MM3 (150-450); RED BLOOD COUNT 4.36 MIL/MM3 (4.00-5.30); RED CELL DISTRIBUTION WIDTH 14.3 % (11.6-17.2); WHITE BLOOD COUNT 8.2 TH/MM3 (4.0-11.0)
[2017-03-17 15:14] LABS: ALT (GPT) 16 U/L (10-53); ANION GAP 4 MEQ/L (5-15); AST (GOT) 13 U/L (15-37); BICARBONATE 29.3 MEQ/L (21.0-32.0); BLOOD UREA NITROGEN 18 MG/DL (7-18); CHLORIDE 106 MEQ/L (98-107); GLOMERULAR FILTRATION RATE 69 ML/MIN (>89); MAGNESIUM 2.2 MG/DL (1.5-2.5); POTASSIUM 4.3 MEQ/L (3.5-5.1); SODIUM (NA) 139 MEQ/L (136-145)
[2017-03-17 15:18] LABS: ALKALINE PHOSPHATASE 91 U/L (45-117); TOTAL BILIRUBIN ADULT 0.2 MG/DL (0.2-1.0)
[2017-03-17 15:22] LABS: CREATINE KINASE 72 U/L (26-192)
[2017-03-17 15:25] LABS: APTT (PATIENT) 28.2 SEC (24.3-30.1); PROTHROMBIN TIME - PATIENT 11.3 SEC (9.8-11.6)
[2017-03-17] MEDS ORDERED: KETOROLAC TROMETHAMINE 30 MG/ML (IVP) VIAL IV PUSH ONE (15:30)
[2017-03-17] MEDS ORDERED: DICYCLOMINE HCL 20 MG/2 ML VIAL IM ONE (15:30)
[2017-03-17] MEDS ORDERED: traMADol HCL 50 MG TAB PO ONE (16:30)
[2017-03-17] MEDS ORDERED: MORPHINE SULFATE 4 MG/ML INJ IV PUSH ONE (16:30)
--- NOTE | 2017-03-18 14:21 | EKG ---
Date Performed: 03/17/2017 Time Performed: 14:16:49 PTAGE: 61 years EKG: SINUS BRADYCARDIA NONSPECIFIC T-WAVE ABNORMALITY BORDERLINE ECG Compared to prior tracing n o significant change PREVIOUS TRACING : 03/12/2017 09.09 DOCTOR: Tio Keller Interpretating Date/Time 03/18/2017 14:19:54
[2017-03-22] MEDS ORDERED: ESCI10TA PO (14:47)
[2017-03-22] MEDS ORDERED: TRAZ50TA12 PO (14:47)
[2017-03-22] MEDS ORDERED: CLON0.1T PO (15:08)
[2017-03-22] MEDS ORDERED: METF500T PO (15:08)
== END 2017-03-17 16:24 | disposition home or self-care (01) ==
LOC: NEPC 14:06
DX: R07.89 Other chest pain (principal); R10.12 Left upper quadrant pain; R00.1 Bradycardia, unspecified
CPT/HCPCS: 71010; 80053; 82550; 83690; 83735; 84484; 85025; 85610; 85730; 93005; 96361; 96372; 96374; 99285; J0500; J1885; J7030

== ENCOUNTER → 2017-06-23 | Outpatient (CLI) | payer OTHER ==
[~2017-06-23] MED LIST changes: +ESCI10TA PO; +METF500T PO; -MIRA33504 PO; +TRAZ50TA12 PO
[2017-06-23 17:36] LABS: HEMOGLOBIN A1a 1.2 %; HEMOGLOBIN LA1C 2.4 %
== END ==
LOC: CLAB 08:39
PROVIDERS: ATTEND Nurse Practitioner Family
DX: E11.9 Type 2 diabetes mellitus without complications (principal)
CPT/HCPCS: 36415; 83036

== ENCOUNTER 2017-07-09 11:21 | Emergency (ER) | payer OTHER ==
[~2017-07-09] VITALS: Ht 160 cm; Wt 100.0 kg
[~2017-07-09 11:21] MED LIST changes: -ESCI10TA PO; -TRAZ50TA12 PO
[2017-07-09 11:25] VITALS: BP 139/79; PULSE 70; RESP 15; TEMP 98.9; O2SAT 98
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
[2017-07-09] MEDS ORDERED: IBUPROFEN 800 MG TAB PO ONE (12:45)
--- NOTE | 2017-07-09 13:23 | RADRPT ---
EXAM DATE/TIME: 07/09/2017 13:14 [facility] COMPARISON: No previous studies available for comparison. INDICATIONS : Hand pain with no known injury. MEDICAL HISTORY : None. SURGICAL HISTORY : None. ENCOUNTER: Initial ACUITY: 4 - 6 days PAIN SCORE: 10/10 LOCATION: Right Hand. FINDINGS: No fracture seen. Bones and joints appear normally aligned. There is a round bony density seen adjace nt to the distal medial aspect of the fourth proximal phalanx likely related to an accessory ossicle. There is some mild hypertrophic change at the first metatarsal head. Calcifications are seen in the lateral distal forearm likely related to vascular structures. CONCLUSION: No acute abnormality seen. Matt Avendaño MD on July 09, 2017 at 13:20 Board Certified Radiologist. This report was verified electronically.
--- NOTE | 2017-07-09 14:19 | RADRPT ---
EXAM DATE/TIME: 07/09/2017 13:42 [facility] COMPARISON: CT CERVICAL SPINE W/O CONTRAST, December 16, 2016, 19:02. INDICATIONS : Right hand pain radiating to neck. RADIATION DOSE: 33.90 CTDIvol (mGy) MEDICAL HISTORY : Stroke. Diabetes, hypertension SURGICAL HISTORY : Hysterectomy. ENCOUNTER: Initial ACUITY: 1 day PAIN SCALE: 7/10 LOCATION: Right hand TECHNIQUE: Volumetric scanning of the cervical spine was performed. Multiplanar reconstructions in the sagittal, coronal and oblique axial planes were performed. Using automated exposure control and adjustment o f the mA and/or kV according to patient size, radiation dose was kept as low as reasonably achievable to obtain optimal diagnostic quality images. DICOM format image data is available electronically f or review and comparison. FINDINGS: VERTEBRAE: Normal vertebral body height. ALIGNMENT: No evidence of subluxation. C2-C3: The disc demonstrates decreased height. There is mild disc bulge and osteophytic ridging. The osteo phytic ridging is most prominent at the right lateral recess region causing a mild impression on the thecal sac. There is uncovertebral and facet hypertrophy being worse on the left. The neural forami na are grossly intact. C3-C4: The disc appears grossly intact. A significant impression on the thecal sac is not seen. There is b ilateral facet hypertrophy being worse on the right. There is mild left uncovertebral hypertrophy. The neural foramina are normal. Prominent anterior osteophytes are seen. C4-C5: The disc demonstrates decreased height. There is moderate disc bulge and osteophytic ridging. There is an uncovertebral hypertrophy. There is narrowing of the neural foramina bilaterally. Minimal fa cet hypertrophy is present. Anterior marginal osteophytes are seen. C5-C6: The posterior disc margin appears grossly intact. Significant spinal stenosis is not appreciated. T here is very prominent right facet and uncovertebral hypertrophy. There is milder left uncovertebral hypertrophy. There is narrowing of the right neural foramen. The left neural foramen appears intac t. C6-C7: The disc space is intact. Significant spinal stenosis is not appreciated. There is moderate right f acet hypertrophy. There is minimal left facet hypertrophy. The neural foramina are grossly intact. C7-T1: The disc space is intact. There is no spinal stenosis. The neural foramina are normal. There is bi lateral facet hypertrophy. CONCLUSION: No acute abnormality is seen. There are prominent degenerative changes as described above. When com pared to the prior examination, significant change is not seen. Matt Avendaño MD on July 09, 2017 at 14:04 Board Certified Radiologist. This report was verified electronically.
[2017-07-09 15:00] VITALS: BP 118/77; PULSE 77; RESP 19; O2SAT 98
== END 2017-07-09 15:42 | disposition home or self-care (01) ==
LOC: NEPE 11:21
DX: M54.12 Radiculopathy, cervical region (principal); I10 Essential (primary) hypertension; I25.10 Atherosclerotic heart disease of native coronary artery without angina pectoris; E11.9 Type 2 diabetes mellitus without complications; F41.9 Anxiety disorder, unspecified; E78.00 Pure hypercholesterolemia, unspecified; K21.9 Gastro-esophageal reflux disease without esophagitis; I25.2 Old myocardial infarction; Z86.73 Personal history of transient ischemic attack (TIA), and cerebral infarction without residual deficits
CPT/HCPCS: 72125; 73130; 99285